=== PATIENT | male | born 1945 | race Hispanic/Latino ===

== ENCOUNTER 2018-09-13 14:45 | Emergency (ER) | payer OTHER ==
[~2018-09-13] VITALS: Ht 162.6 cm; Wt 90.7 kg
[2018-09-13] MEDS ORDERED: GLUCAGON FOR INJ 1 MG VIAL IV ONE (15:00)
--- NOTE | 2018-09-13 17:33 | Diagnostic Imaging Report ---
EXAMINATION: PA and lateral views of the chest. COMPARISON: None. CLINICAL HISTORY: Chest pain, pecan stuck in throat DISCUSSION: Lines/tubes: None. Lungs: The lungs are well inflated and clear. There is no evidence of pneumonia or pulmonary edema. No radiopaque foreign bodies. Pleura: There is no pleural effusion or pneumothorax. Heart and mediastinum: Cardiomediastinal silhouette is unremarkable. Pulmonary vasculature is normal. Bones and soft tissues: No acute bony abnormalities. Age-appropriate degenerative changes in the thoracic spine IMPRESSION: No acute cardiopulmonary abnormalities. No radiopaque foreign bodies. Signed by: Dr. Mariano Fenton M.D. on 09/13/2018 5:30 PM
[2018-09-13 18:00] VITALS: BP 133/68
== END 2018-09-13 18:02 | disposition home or self-care (01) ==
LOC: ER 14:45 → EDBD 14:45 → ER 18:02
DX: R09.89 Other specified symptoms and signs involving the circulatory and respiratory systems (principal); I10 Essential (primary) hypertension; E11.9 Type 2 diabetes mellitus without complications; I25.10 Atherosclerotic heart disease of native coronary artery without angina pectoris; F32.9 Major depressive disorder, single episode, unspecified; I25.2 Old myocardial infarction
CPT/HCPCS: 71046; 99284; J1610